=== PATIENT | female | born 1960 ===

== ENCOUNTER 2023-03-01 17:22 | Emergency (ER) | payer OTHER ==
[~2023-03-01] VITALS: Ht 157.5 cm; Wt 68.0 kg
[2023-03-01] MEDS ORDERED: JANUMET XR 1001 EACH PO (17:41)
[2023-03-01] MEDS ORDERED: KEPPRA500 MG PO (17:41)
[2023-03-01] MEDS ORDERED: PROAIR RESPICL90 MCG IH (19:09)
[2023-03-01] MEDS ORDERED: PAXLOVID 300-11 EACH PO (19:09)
[2023-03-01] MEDS ORDERED: TUSNEL LIQUID178 ML PO (19:09)
== END 2023-03-01 19:22 | disposition home or self-care (01) ==
LOC: ER 17:22
DX: U07.1 COVID-19 (principal); Z88.8 Allergy status to other drugs, medicaments and biological substances; E11.9 Type 2 diabetes mellitus without complications; Z79.84 Long term (current) use of oral hypoglycemic drugs